=== PATIENT | female | born 1980 | race Caucasian/White ===

== ENCOUNTER 2018-01-12 19:23 | Inpatient (IN) | payer BC ==
[~2018-01-12] VITALS: Ht 160 cm; Wt 55.3 kg
[~2018-01-12 19:23] MED LIST: DIA5 PO; LACT1CAP9 PO; LEVA15HF IH; LOR5/325 PO; METH-543 PO; METH500T6 PO; [UNRECOGNIZED DRUG - CODE] PO
--- NOTE | 2018-01-12 19:35 | ER Report ---
History and Physical Time Seen By MD: 19:34 HPI/ROS CHIEF COMPLAINT: abdominal pain HISTORY OF PRESENT ILLNESS: This is a 37 year old female. She is having abdominal pain for a few days now. She has felt bloated and does have a history of chronic constipation. When she gets constipated, she will take her Trulance to help clean her out. She often take some prune juice with miralax along with this. She has been having worsening abdominal pain today. Having nausea and vomiting. She was at urgent care and they were worried about possible bowel obstruction because they told her the bowels were quiet and she had not moved them today. No fevers or chills with this. Pain seems to be mainly in the periumbilical area, but does spread out and seems worse in the right side. No dysuria, urgency or frequency with the urine. She has been chugging water to see if that would help. REVIEW OF SYSTEMS: Constitutional: No fever or chills. Eyes: No vision changes. ENT: No sore throat. No congestion. Cardiovascular: No chest pain. No palpitations. Respiratory: No cough. No shortness of breath. Gastrointestinal: As above. Genitourinary: As above. Musculoskeletal: No musculoskeletal pain. Skin: No rashes. Neurological: No headache or dizziness. Allergies: Coded Allergies: Fish Containing Products (Verified Allergy, Intermediate, VOMITING, ) erythromycin base (Verified Allergy, Intermediate, VOMITING, 01/12/18) lactose (Verified Allergy, Unknown, 01/12/18) Uncoded Allergies: DANIEL (Allergy, Unknown, 06/30/16) Home Meds Reported Medications Polyethylene Glycol 3350 (MIRALAX) 17 Gm Powd.pack, 17 GM PO QDAY, PKT 01/12/18 Plecanatide (Trulance) 3 Mg Tablet, 1 TAB PO QDAY 01/12/18 Levalbuterol Tartrate (XOPENEX HFA) 15 Gm Hfa.aer.ad, 15 GM IH BID Y for SHORTNESS OF BREATH 02/15/16 Discontinued Reported Medications Lactobacillus Combo No.10 (PROBIOTIC) 1 Each Capsule, 1 EACH PO PRN, CAPSULE 06/30/16 Methylcellulose (FIBER) 500 Mg Tablet, PO PRN 06/30/16 [place]'s Wort (LORRIE'S WORT) 150 Mg Capsule, 150 MG PO, CAPSULE 06/30/16 Discontinued Scripts Methocarbamol (ROBAXIN-750) 750 Mg Tablet, 1500 MG PO TID for Muscle Relaxant, # 15 TAB 0 Refills Prov:BERNICE CLEMONS MD 07/08/16 Diazepam (VALIUM) 5 Mg Tablet, 5 MG PO Q8H Y for BACK SPASM, #10 TAB 0 Refills Prov:BERNICE CLEMONS MD 07/08/16 Hydrocodone Bit/Acetaminophen (HYDROCODON-ACETAMINOPHEN 5-325) 1 Each Tablet, 1 EACH PO Q4-6H Y for PAIN, #12 TAB 0 Refills TAKE ONE TABLET BY MOUTH EVERY 4-6 HOURS NEEDED FOR PAIN Prov:BERNICE CLEMONS MD 06/30/16 Reviewed Nurses Notes: Yes Hx Smoking: No Smoking Status: Never Smoker Hx Substance Use Disorder: No Hx Alcohol Use: No Constitutional Vital Sign - Last 24 Hours 01/12/18 01/12/18 01/12/18 01/12/18 19:31 19:34 19:38 19:53 Temp 98.4 Pulse 65 64 64 Resp 14 B/P (MAP) 134/83 (100) 134/83 Pulse Ox 99 100 100 O2 Delivery Room Air 01/12/18 01/12/18 01/12/18 01/12/18 20:08 20:23 20:53 20:58 Pulse 67 70 67 64 Pulse Ox 97 99 100 100 Physical Exam General Appearance: The patient is alert. Having acute distress due to pain. Eyes: Pupils are equal, round. No pallor, injection or icterus. ENT: Mucous membranes are moist. Normal oral mucosa. Posterior oropharynx is normal. Neck: Supple and non tender. Respiratory: Lungs are clear to auscultation. Cardiovascular: Regular rate and rhythm. No murmurs, gallops or rubs. Gastrointestinal: Abdomen is soft, has tenderness throughout, worse in the epigastric and periumbilical area. Mild in right side, negative reinoso sign. Nondistended. Hyperactive bowel sounds. No costovertebral angle tenderness with percussion. Neurological: Alert and oriented x3. No focal neurologic deficits Skin: Warm and dry. No rashes. Musculoskeletal: Extremities are nontender. No tenderness in palpation of the cervical, thoracic and lumbar spine. DIFFERENTIAL DIAGNOSIS: After history and physical exam, differential diagnosis was considered for abdominal pain including but not limited to appendicitis, cholecystitis, gastritis, pancreatitis and urinary tract infection. Medical Decision Making Data Points Result Diagram: 01/12/18201901/12/182019 Laboratory Hematology Test 01/12/18 20:14 01/12/18 20:20 Urine Color Petra Urine Clarity Clear Urine pH 7.0 pH (4.8-9.5) Urine Specific [place] 1.017 Urine Protein Negative mg/dL (NEGATIVE) Urine Glucose (UA) Negative mg/dL (NEGATIVE) Urine Ketones 20 mg/dL (NEGATIVE) Urine Blood Negative (NEGATIVE) Urine Nitrite Negative (NEGATIVE) Urine Bilirubin Negative (NEGATIVE) Urine Urobilinogen 4.0 mg/dL (0.2-1.9) Urine Leukocyte Esterase Negative (NEGATIVE) Urine RBC <1 /HPF (0-2/HPF) Urine WBC 1 /HPF (0-5/HPF) Urine Squamous Epithelial Cells Many /LPF (</=FEW) Urine Bacteria Negative /HPF (NONE-FEW) Urine Mucus None /HPF (NONE-FEW) Red Blood Count 5.08 M/uL (4.17-5.56) Mean Corpuscular Volume 89.2 fL (80.0-96.0) Mean Corpuscular Hemoglobin 30.8 pg (26.0-33.0) Mean Corpuscular Hemoglobin Concent 34.6 g/dL (32.0-36.0) Red Cell Distribution Width 13.0 % (11.5-14.5) Mean Platelet Volume 8.0 fL (7.2-11.1) Neutrophils (%) (Auto) 75.3 % (39.4-72.5) Lymphocytes (%) (Auto) 13.1 % (17.6-49.6) Monocytes (%) (Auto) 9.3 % (4.1-12.4) Eosinophils (%) (Auto) 2.0 % (0.4-6.7) Basophils (%) (Auto) 0.3 % (0.3-1.4) Nucleated RBC Relative Count (auto) 0.1 /100WBC Neutrophils # (Auto) 6.6 K/uL (2.0-7.4) Lymphocytes # (Auto) 1.1 K/uL (1.3-3.6) Monocytes # (Auto) 0.8 K/uL (0.3-1.0) Eosinophils # (Auto) 0.2 K/uL (0.0-0.5) Basophils # (Auto) 0.0 K/uL (0.0-0.1) Nucleated RBC Absolute Count (auto) 0.01 K/uL Erythrocyte Sedimentation Rate 2 mm/HOUR (0-20) Sodium Level 140 mmol/L (137-145) Potassium Level 3.6 mmol/L (3.5-5.0) Chloride Level 104 mmol/L (98-107) Carbon Dioxide Level 24 mmol/L (22-31) Blood Urea Nitrogen 10 mg/dl (7-18) Creatinine 0.80 mg/dl (0.52-1.04) Glomerular Filtration Rate Calc > 60.0 Random Glucose 104 mg/dl (75-110) Calcium Level 9.4 mg/dl (8.4-10.2) Total Bilirubin 3.2 mg/dl (0.2-1.3) Aspartate Amino Transf (AST/SGOT) 937 U/L (0-35) Alanine Aminotransferase (ALT/SGPT) 956 U/L (0-56) Alkaline Phosphatase 127 U/L (0-126) Total Protein 7.5 gm/dl (6.3-8.2) Albumin 4.3 g/dl (3.5-5.0) Amylase Level 248 U/L (0-110) Lipase 2872 U/L (23-300) Human Chorionic Gonadotropin, Qual Negative (NEGATIVE) Chemistry Test 01/12/18 20:14 01/12/18 20:20 Urine Color Petra Urine Clarity Clear Urine pH 7.0 pH (4.8-9.5) Urine Specific [place] 1.017 Urine Protein Negative mg/dL (NEGATIVE) Urine Glucose (UA) Negative mg/dL (NEGATIVE) Urine Ketones 20 mg/dL (NEGATIVE) Urine Blood Negative (NEGATIVE) Urine Nitrite Negative (NEGATIVE) Urine Bilirubin Negative (NEGATIVE) Urine Urobilinogen 4.0 mg/dL (0.2-1.9) Urine Leukocyte Esterase Negative (NEGATIVE) Urine RBC <1 /HPF (0-2/HPF) Urine WBC 1 /HPF (0-5/HPF) Urine Squamous Epithelial Cells Many /LPF (</=FEW) Urine Bacteria Negative /HPF (NONE-FEW) Urine Mucus None /HPF (NONE-FEW) White Blood Count 8.7 k/uL (4.5-11.0) Red Blood Count 5.08 M/uL (4.17-5.56) Hemoglobin 15.7 g/dL (12.0-16.0) Hematocrit 45.3 % (34.0-47.0) Mean Corpuscular Volume 89.2 fL (80.0-96.0) Mean Corpuscular Hemoglobin 30.8 pg (26.0-33.0) Mean Corpuscular Hemoglobin Concent 34.6 g/dL (32.0-36.0) Red Cell Distribution Width 13.0 % (11.5-14.5) Platelet Count 209 K/uL (150-450) Mean Platelet Volume 8.0 fL (7.2-11.1) Neutrophils (%) (Auto) 75.3 % (39.4-72.5) Lymphocytes (%) (Auto) 13.1 % (17.6-49.6) Monocytes (%) (Auto) 9.3 % (4.1-12.4) Eosinophils (%) (Auto) 2.0 % (0.4-6.7) Basophils (%) (Auto) 0.3 % (0.3-1.4) Nucleated RBC Relative Count (auto) 0.1 /100WBC Neutrophils # (Auto) 6.6 K/uL (2.0-7.4) Lymphocytes # (Auto) 1.1 K/uL (1.3-3.6) Monocytes # (Auto) 0.8 K/uL (0.3-1.0) Eosinophils # (Auto) 0.2 K/uL (0.0-0.5) Basophils # (Auto) 0.0 K/uL (0.0-0.1) Nucleated RBC Absolute Count (auto) 0.01 K/uL Erythrocyte Sedimentation Rate 2 mm/HOUR (0-20) Glomerular Filtration Rate Calc > 60.0 Calcium Level 9.4 mg/dl (8.4-10.2) Total Bilirubin 3.2 mg/dl (0.2-1.3) Aspartate Amino Transf (AST/SGOT) 937 U/L (0-35) Alanine Aminotransferase (ALT/SGPT) 956 U/L (0-56) Alkaline Phosphatase 127 U/L (0-126) Total Protein 7.5 gm/dl (6.3-8.2) Albumin 4.3 g/dl (3.5-5.0) Amylase Level 248 U/L (0-110) Lipase 2872 U/L (23-300) Human Chorionic Gonadotropin, Qual Negative (NEGATIVE) Urinalysis Test 01/12/18 20:14 Urine Color Petra Urine Clarity Clear Urine pH 7.0 pH (4.8-9.5) Urine Specific [place] 1.017 Urine Protein Negative mg/dL (NEGATIVE) Urine Glucose (UA) Negative mg/dL (NEGATIVE) Urine Ketones 20 mg/dL (NEGATIVE) Urine Blood Negative (NEGATIVE) Urine Nitrite Negative (NEGATIVE) Urine Bilirubin Negative (NEGATIVE) Urine Urobilinogen 4.0 mg/dL (0.2-1.9) Urine Leukocyte Esterase Negative (NEGATIVE) Urine RBC <1 /HPF (0-2/HPF) Urine WBC 1 /HPF (0-5/HPF) Urine Squamous Epithelial Cells Many /LPF (</=FEW) Urine Bacteria Negative /HPF (NONE-FEW) Urine Mucus None /HPF (NONE-FEW) EKG/Imaging Imaging ACUTE ABDOMEN SERIES 3 VIEW COMPARISONS: 2 view chest dated June 30, 2016 ADDITIONAL PERTINENT HISTORY: Bloating FINDINGS: Lung sequeira: Negative. Supine evidence of free air: None. Bowel gas pattern: Negative. Surrounding soft tissues and solid organs: Small calcifications within the right lower quadrant which could represent underlying appendicoliths. IUD in place. Osseous structures: Negative. IMPRESSION: 1. No evidence of acute cardiopulmonary disease. 2. Findings which could represent appendicoliths in the right lower quadrant. 3. No acute intra-abdominal process. Report Dictated By: Rafael Roberson MD at 01/12/2018 9:01 PM EXAMINATION: CT abdomen and pelvis with IV contrast HISTORY: Pancreatitis. Elevated liver enzymes. TECHNIQUE: Axial CT images of the abdomen and pelvis were obtained with IV contrast, with coronal and sagittal 2D reconstructed images. One of the following dose optimization techniques was utilized in the performance of this exam: Automated exposure control; adjustment of the mA and/ or kV according to the patient's size; or use of an iterative reconstruction technique. Specific details can be referenced in the facility's radiology CT exam operational policy. Contrast: 75 mL of IV Isovue-370. COMPARISON: None. FINDINGS: Liver: Negative. Gallbladder and bile ducts: The gallbladder is moderately contracted, with mild wall enhancement. No calcified gallstones. No bile duct dilatation. Spleen: Negative. Pancreas: No CT evidence of acute peripancreatic stranding. The pancreas enhances normally. No focal soft tissue mass or fluid collection. Adrenal glands: Negative. Kidneys: Negative. No hydronephrosis or urinary calculi. Bowel and peritoneum: The small bowel and colon are normal in caliber, without evidence of obstruction or any focal inflammatory process. No free fluid or free intraperitoneal air. Pelvic structures: IUD present in the central uterus. No large adnexal cyst. Lymph node assessment: Negative. Vessels: Negative. Musculoskeletal: Negative. Body wall: Negative. Lung bases: Calcified granuloma in the left lower lobe. IMPRESSION: 1. Normal CT appearance of the pancreas. 2. The gallbladder is moderately contracted, with mild wall enhancement. If there is clinical concern for acute gallbladder disease, follow-up CT could be performed. 3. No other acute intra-abdominal findings. Report Dictated By: Sunny Amaral MD at 01/12/2018 9:44 PM GALLBLADDER HISTORY: Pancreatitis. Elevated liver enzymes. COMPARISON: None. CT abdomen pelvis earlier same day. FINDINGS: Pancreas: The distal body and tail of the pancreas are obscured. Visible pancreas is normal. No peripancreatic fluid collection. Upper abdominal aorta and IVC: Aorta and IVC are patent by color Doppler and are unremarkable. Liver: Normal. No intrahepatic ductal dilation. The portal vein is patent with normal hepatopetal flow. The hepatic vein is patent and phasic. Gallbladder: There is diffuse shadowing from the gallbladder due to multiple stones. No gallbladder wall thickening or pericholecystic fluid. Negative sonographic Reinoso sign. Common duct: Normal, measuring 3 mm. Right kidney: Normal in size and echogenicity. It measures 9.1 x 5.3 x 4.7 cm. No hydronephrosis. Resistive index is normal, measuring 0.5. Ascites: None. IMPRESSION: 1. Cholelithiasis, but no sonographic evidence for cholecystitis. 2. The distal body and tail of the pancreas are obscured. Report Dictated By: Kathya Andujar at 01/12/2018 10:58 PM ED Course/Re-evaluation Clinical Indication for ER IV: Hydration, IV Access ED Course After my initial evaluation, laboratory studies including a urinalysis and blood work were obtained. Patient also had a three-view abdomen. Laboratory studies did show elevation of the amylase, lipase, bili, AST, a LT, and alkaline phosphatase. The white count was normal. Electrolytes looked okay. Abdominal x-ray showed no signs of obstruction. Based on the laboratory findings , CT scan and ultrasound of the gallbladder were obtained. The gallbladder did show gallstones but no signs of cholecystitis. The patient's pain had improved significantly. I called and spoke with both the hospitalist, Dr. Cullen, and with Dr. Jensen, Gen. surgery. The patient will be admitted to general surgery for gallstone pancreatitis. Decision to Disposition Date: January 12, 2018 Decision to Disposition Time: 23:34 Depart Departure Latest Vital Signs Vital Signs Date Time Temp Pulse Resp B/P (MAP) Pulse Ox O2 Delivery O2 Flow Rate FiO2 01/12/18 20:58 64 100 01/12/18 19:34 98.4 14 134/83 Room Air Impression: Primary Impression: Acute gallstone pancreatitis Condition: Condition Unchanged Disposition: Admitted from ER ZARIA COY MD January 12, 2018 19:34
[2018-01-12] MEDS ORDERED: PLEC3TAB PO (19:39)
[2018-01-12] MEDS ORDERED: POLY17PO25 PO (19:39)
[2018-01-12 20:27] LABS: PLATELET COUNT, AUTOMATED 209 K/uL (150-450)
--- NOTE | 2018-01-12 21:08 | RADIOLOGY IMAGING REPORT ---
FACILITY: [facility] PATIENT NAME: Jada Daley : 1980 MR: [id number] V: [id number] EXAM DATE: ORDERING PHYSICIAN: ZARIA COY TECHNOLOGIST: Location: [facility] - [place] Patient: Jada Daley : 1980 Visit/Account:[id number] Date of Sevice: 01/12/2018 ACUTE ABDOMEN SERIES 3 VIEW COMPARISONS: 2 view chest dated June 30, 2016 ADDITIONAL PERTINENT HISTORY: Bloating FINDINGS: Lung sequeira: Negative. Supine evidence of free air: None. Bowel gas pattern: Negative. Surrounding soft tissues and solid organs: Small calcifications within the right lower quadrant which could represent underlying appendicoliths. IUD in place. Osseous structures: Negative. IMPRESSION: 1. No evidence of acute cardiopulmonary disease. 2. Findings which could represent appendicoliths in the right lower quadrant. 3. No acute intra-abdominal process. Report Dictated By: Rafael Roberson MD at 01/12/2018 9:01 PM Report E-Signed By: Rafael Roberson MD at 01/12/2018 9:04 PM WSN:[id number]
[2018-01-12] MEDS ORDERED: IOPAMIDOL 76% 75 ML INFUS BTL 75 ML ONE (21:09)
--- NOTE | 2018-01-12 21:57 | RADIOLOGY IMAGING REPORT ---
FACILITY: [facility] - [place] PATIENT NAME: Jada Daley : 1980 MR: [id number] V: [id number] EXAM DATE: ORDERING PHYSICIAN: ZARIA COY TECHNOLOGIST: Location: [facility] - [place] Patient: Jada Daley : 1980 Visit/Account:[id number] Date of Sevice: 01/12/2018 EXAMINATION: CT abdomen and pelvis with IV contrast HISTORY: Pancreatitis. Elevated liver enzymes. TECHNIQUE: Axial CT images of the abdomen and pelvis were obtained with IV contrast, with coronal a nd sagittal 2D reconstructed images. One of the following dose optimization techniques was utilized in the performance of this exam: Autom ated exposure control; adjustment of the mA and/or kV according to the patient's size; or use of an i terative reconstruction technique. Specific details can be referenced in the facility's radiology C T exam operational policy. Contrast: 75 mL of IV Isovue-370. COMPARISON: None. FINDINGS: Liver: Negative. Gallbladder and bile ducts: The gallbladder is moderately contracted, with mild wall enhancement. No calcified gallstones. No bile duct dilatation. Spleen: Negative. Pancreas: No CT evidence of acute peripancreatic stranding. The pancreas enhances normally. No focal soft tissue mass or fluid collection. Adrenal glands: Negative. Kidneys: Negative. No hydronephrosis or urinary calculi. Bowel and peritoneum: The small bowel and colon are normal in caliber, without evidence of obstructi on or any focal inflammatory process. No free fluid or free intraperitoneal air. Pelvic structures: IUD present in the central uterus. No large adnexal cyst. Lymph node assessment: Negative. Vessels: Negative. Musculoskeletal: Negative. Body wall: Negative. Lung bases: Calcified granuloma in the left lower lobe. IMPRESSION: 1. Normal CT appearance of the pancreas. 2. The gallbladder is moderately contracted, with mild wall enhancement. If there is clinical concern for acute gallbladder disease, follow-up CT could be performed. 3. No other acute intra-abdominal findings. Report Dictated By: Sunny Amaral MD at 01/12/2018 9:44 PM Report E-Signed By: Sunny Amaral MD at 01/12/2018 9:53 PM WSN:[id number]
--- NOTE | 2018-01-12 23:09 | RADIOLOGY IMAGING REPORT ---
FACILITY: [facility] - [place], [place] PATIENT NAME: Jada Daley : 1980 MR: [id number] V: [id number] EXAM DATE: ORDERING PHYSICIAN: ZARIA COY TECHNOLOGIST: Location: [facility] Patient: Jada Daley : 1980 Visit/Account:[id number] Date of Sevice: 01/12/2018 GALLBLADDER HISTORY: Pancreatitis. Elevated liver enzymes. COMPARISON: None. CT abdomen pelvis earlier same day. FINDINGS: Pancreas: The distal body and tail of the pancreas are obscured. Visible pancreas is normal. No perip ancreatic fluid collection. Upper abdominal aorta and IVC: Aorta and IVC are patent by color Doppler and are unremarkable. Liver: Normal. No intrahepatic ductal dilation. The portal vein is patent with normal hepatopetal magalie w. The hepatic vein is patent and phasic. Gallbladder: There is diffuse shadowing from the gallbladder due to multiple stones. No gallbladder w all thickening or pericholecystic fluid. Negative sonographic Reinoso sign. Common duct: Normal, measuring 3 mm. Right kidney: Normal in size and echogenicity. It measures 9.1 x 5.3 x 4.7 cm. No hydronephrosis. Res istive index is normal, measuring 0.5. Ascites: None. IMPRESSION: 1. Cholelithiasis, but no sonographic evidence for cholecystitis. 2. The distal body and tail of the pancreas are obscured. Report Dictated By: Kathya Andujar at 01/12/2018 10:58 PM Report E-Signed By: Kathya Andujar at 01/12/2018 11:06 PM WSN:[id number]
[2018-01-12 23:59] VITALS: BP 129/87
[2018-01-13] MEDS ORDERED: MORPHINE 1 MG/ML 30 ML PCA IV PRN ×2 (00:10→06:50)
[2018-01-13] MEDS ORDERED: ACETAMINOPHEN(*)1000 MG/100 ML 100 ML IVPB PRN ×2 (00:25)
[2018-01-13] MEDS ORDERED: ONDANSETRON 4 MG/2 ML VIAL IVP PRN ×3 (00:25→06:50)
[2018-01-13] MEDS ORDERED: KCL 2 MEQ/ML 20 MEQ/10 ML VIAL 20 MEQ in D5 1/2 NS(*) 1000 ML BAG 1,000 ML IV SCH (00:35)
[2018-01-13] MEDS ORDERED: NS(*) 0.9% 1000 ML BAG 1,000 ML ONE (00:48)
[2018-01-13] MEDS: NS(*) 0.9% 1000 ML BAG 1,000 ML IV SCH ×2 (00:54→05:45)
[2018-01-13 05:48] VITALS: BP 121/79
--- NOTE | 2018-01-13 06:50 | General Surgery 1 H&P ---
History of Present Illness Chief Complaint abdominal pain History of Present Illness 37 yo female with asthma presents with abdominal pain. pt developed some mid abdominal pain 3 days ago it then went away then yesterday the patient developed a tight pain across the mid upper abdomen. no nausea or vomiting. no fever. no change in bms no urinary complaints.. she does have some back pain. pt seen in ed. lab shows elevated lipase and bilirubin and lfts. ultrasound shows cholelithiasis. ct shows pancreas to look normal. pt feeling better this am. pain improved. lab work improving except for bilirubin. History Other Past Surgeries: urethra as child Home Meds Reported Medications Polyethylene Glycol 3350 (MIRALAX) 17 Gm Powd.pack, 17 GM PO QDAY, PKT 01/12/18 Plecanatide (Trulance) 3 Mg Tablet, 1 TAB PO QDAY 01/12/18 Levalbuterol Tartrate (XOPENEX HFA) 15 Gm Hfa.aer.ad, 15 GM IH BID Y for SHORTNESS OF BREATH 02/15/16 Discontinued Reported Medications Lactobacillus Combo No.10 (PROBIOTIC) 1 Each Capsule, 1 EACH PO PRN, CAPSULE 06/30/16 Methylcellulose (FIBER) 500 Mg Tablet, PO PRN 06/30/16 Андрей's Wort (АНДРЕЙ'S WORT) 150 Mg Capsule, 150 MG PO, CAPSULE 06/30/16 Discontinued Scripts Methocarbamol (ROBAXIN-750) 750 Mg Tablet, 1500 MG PO TID for Muscle Relaxant, # 15 TAB 0 Refills Prov:BERNICE CLEMONS MD 07/08/16 Diazepam (VALIUM) 5 Mg Tablet, 5 MG PO Q8H Y for BACK SPASM, #10 TAB 0 Refills Prov:BERNICE CLEMONS MD 07/08/16 Hydrocodone Bit/Acetaminophen (HYDROCODON-ACETAMINOPHEN 5-325) 1 Each Tablet, 1 EACH PO Q4-6H Y for PAIN, #12 TAB 0 Refills TAKE ONE TABLET BY MOUTH EVERY 4-6 HOURS NEEDED FOR PAIN Prov:BERNICE CLEMONS MD 06/30/16 Allergies: Coded Allergies: Fish Containing Products (Verified Allergy, Intermediate, VOMITING, ) erythromycin base (Verified Allergy, Intermediate, VOMITING, 01/12/18) lactose (Verified Allergy, Unknown, 01/12/18) Uncoded Allergies: DANIEL (Allergy, Unknown, 06/30/16) Family History: Diabetes mellitus FATHER FH: bipolar disorder MOTHER FH: breast cancer MOTHER FH: hypertension FATHER BROTHER OR SISTER FH: migraine headache MOTHER Review of Systems History of Hypertension?: No History of Diabetes?: No History of DVT?: No Obstructive Sleep Apnea?: No History of Liver Disease?: No History of Kidney Disease?: No Respiratory: Reports Other (asthma) Gastrointestinal: Nausea, Vomiting, Diarrhea, Dysphagia, Constipation (chronic constipation), Early Satiety, Hematemesis, Hematochezia, Melena, Abdominal Pain , Other Exam Vital Signs Date Time Temp Pulse Resp B/P (MAP) Pulse Ox O2 Delivery O2 Flow Rate FiO2 01/13/18 05:48 97.9 70 16 121/79 (93) 98 Blow-by General Appearance: Alert, Awake, No Acute Distress GI: Abd Soft and Non-Tender Medical Decision Making Data Points Result Diagram: 01/13/1829 01/13/1829 Assessment and Plan Problems: (1) Acute gallstone pancreatitis Status: Acute Assessment & Plan: will admit give iv hydration and analgesia. let pancreatitis settle down then remove gallbladder. if bilirubin continues to go up will get mrcp and possible gastroenterology evaluation, Copies to: STANISLAW PATTEN MD Venous Thromboembolism Antithrombotics Is Pt On Any Antithrombotics?: No STANISLAW PATTEN MD January 13, 2018 06:49
[2018-01-13 07:22] VITALS: BP 116/85
[2018-01-13 08:27] VITALS: Ht 160 cm; Wt 55.3 kg
[2018-01-13] MEDS ORDERED: KCL/D1/2NS 20 MEQ 1000 ML 1,000 ML IV SCH (08:45)
[2018-01-13] MEDS ORDERED: PANTOPRAZOLE SOD 40 MG IV VIAL IVP SCH ×2 (09:00)
[2018-01-13] MEDS: PANTOPRAZOLE SOD 40 MG IV VIAL IVP SCH (09:06)
[2018-01-13] MEDS: NORMOSOL R SOLN(*) 1000 ML BAG 1,000 ML IV PRN ×2 (09:06→17:36)
[2018-01-13 11:50] VITALS: BP 126/77
[2018-01-13 14:26] VITALS: BP 122/78
[2018-01-13 18:42] VITALS: BP 124/86
[2018-01-14] VITALS (12 sets, daily range): BP systolic 97–126; BP diastolic 55–92
[2018-01-14] MEDS: NORMOSOL R SOLN(*) 1000 ML BAG 1,000 ML IV PRN ×2 (01:17→10:04)
[2018-01-14 06:06] LABS: PLATELET COUNT, AUTOMATED 165 K/uL (150-450)
--- NOTE | 2018-01-14 07:13 | General Surgery Progress Note ---
Subjective Progress Notes Subjective no complaints. no pain Physical Exam Vital Signs Date Time Temp Pulse Resp B/P (MAP) Pulse Ox O2 Delivery O2 Flow Rate FiO2 01/14/18 06:09 97 01/14/18 06:07 98.2 81 16 121/80 (94) Room Air General Appearance: Alert, Awake, No Acute Distress GI: Soft and Non-Tender Result Diagram: 01/14/18 0559 01/14/18 0559 Assessment and Plan Problems: (1) Acute gallstone pancreatitis Status: Acute Assessment & Plan: will admit give iv hydration and analgesia. let pancreatitis settle down then remove gallbladder. if bilirubin continues to go up will get mrcp and possible gastroenterology evaluation, 01/14/18 lab and symptoms improved, lap pamela today Exam Sepsis Risk: No Definite Risk STANISLAW PATTEN MD Jan 14, 2018 07:13
--- NOTE | 2018-01-14 07:25 | Post Operative Progress Note ---
Post Operative Progress Note Date: Jan 14, 2018 Time: 11:51 Surgeon: rahul Anesthesia: dr gilbert Pre-Op Diagnosis: gallstone pancreatitis Post-Op Diagnosis: cholelithiasis, cholecystitis and choledocholithiasis Procedure(s): lap pamela with gram and common bile duct exploration STANISLAW PATTEN MD Jan 14, 2018 07:24
[2018-01-14] MEDS: PANTOPRAZOLE SOD 40 MG IV VIAL IVP SCH (08:51)
[2018-01-14] MEDS ORDERED: fentaNYL CITR 250 MCG/5 ML AMP ONE (09:05)
[2018-01-14] MEDS ORDERED: DEXAMETHASONE SOD PHOS 10MG/ML ONE (09:06)
[2018-01-14] MEDS ORDERED: LIDOCAINE MPF 1% 5 ML VIAL ONE ×2 (09:06→11:03)
[2018-01-14] MEDS ORDERED: ONDANSETRON 4 MG/2 ML VIAL ONE (09:06)
[2018-01-14] MEDS ORDERED: NS 0.9% 20 ML SDV 20 ML ONE (09:06)
[2018-01-14] MEDS ORDERED: PROPOFOL EMUL(*) 10MG/ML 20 ML 20 ML ONE (09:06)
[2018-01-14] MEDS ORDERED: KETAMINE HCL 200 MG/20 ML MDV ONE (09:11)
[2018-01-14] MEDS ORDERED: IOPAMIDOL 61% 75 ML INFUS BTL 75 ML ONE (09:45)
[2018-01-14] MEDS ORDERED: ROPIVACAINE 0.2% 20 ML VIAL ONE (09:45)
[2018-01-14] MEDS ORDERED: MIDAZOLAM 2 MG/2 ML VIAL IVP PRN (10:00)
[2018-01-14] MEDS ORDERED: SCOPOLAMINE 1.5 MG PATCH TD ONE (10:05)
[2018-01-14] MEDS ORDERED: KETOROLAC 30 MG/ML VIAL ONE (10:07)
[2018-01-14] MEDS ORDERED: SUGAMMADEX SOD 200 MG/2 ML SDV ONE (10:08)
[2018-01-14] MEDS ORDERED: HALOPERIDOL LACT 5 MG/ML VIAL IM ONE (10:11)
[2018-01-14] MEDS ORDERED: ROCURONIUM BROM 10 MG/ML 5 ML ONE (10:30)
[2018-01-14] MEDS ORDERED: LIDO/EPI 1% MDV 1:100,000 20ML INFIL ONE (11:01)
[2018-01-14] MEDS ORDERED: GLUCAGON 1 MG KIT ONE ×2 (11:04→11:07)
[2018-01-14] MEDS ORDERED: LIDOCAINE 1%MDV(*)200 MG/20 ML 1 ML ONE (11:04)
[2018-01-14] MEDS ORDERED: cefOXitin/DEX(*) 2GM/50ML PREM 50 ML IVPB ONE (11:15)
[2018-01-14] MEDS ORDERED: KETOROLAC 30 MG/ML VIAL IVP SCH (12:00)
[2018-01-14] MEDS ORDERED: HYDROmorphone HCL 2 MG/ML SDV ONE (12:09)
--- NOTE | 2018-01-14 14:01 | OPERATIVE REPORT 1 ---
EVENT DATE: January 14, 2018 SURGEON: Alfonzo Jensen MD ANESTHESIOLOGIST: Kenan Welch MD ANESTHESIA: General. PREOPERATIVE DIAGNOSES Cholelithiasis, cholecystitis. POSTOPERATIVE DIAGNOSES Cholelithiasis, cholecystitis, choledocholithiasis. PROCEDURE Laparoscopic cholecystectomy with intraoperative cholangiogram and common bile duct exploration. DESCRIPTION OF PROCEDURE Patient was placed in the supine position and given general anesthetic. Her abdomen was prepped and draped in sterile fashion. We anesthetized the skin with 0.2% ropivacaine, made a small incision above the umbilicus, inserted a Veress needle, insufflated the abdomen with CO2. We then placed a 5 mm port under direct vision. We then placed two 5 mm in the right subcostal region, a 10 mm in the epigastrium under direct vision. Gallbladder was grasped, raised cephalad. There were adhesions to the undersurface of the gallbladder. These were taken down with electrocautery and blunt dissection. We dissected out the cystic duct, gallbladder junction. Cystic duct was dilated. We opened the cystic duct, inserted Taut catheter, obtained cholangiograms, which showed stones in the distal common duct. We then removed the Taut catheter past the 4 [place] ureteral stone basket several times and retrieved stones. We were able to get the catheter to thread through into the duodenum without difficulty. We then repeated the cholangiogram. There still seemed to be a little abnormality there. We then injected 10 mL of Xylocaine plain into the common bile duct. Anesthesiologist gave 2 mg of glucagon IV. We then repeated flushing and passing the stone basket. No other abnormalities were returned. We repeated the cholangiogram. This showed flow into the duodenum, nice tapering of the distal duct. There appeared to be a small amount of debris in the distal common bile duct. The Taut catheter was removed. We passed the basket several times but could not retrieve anything else. We flushed it several times with saline, could not get anything else out. At this point, the cystic duct was doubly clipped proximally and transected. It was also ligated with an #0- Chromic Endoloop. We then clipped the cystic artery doubly and transected it. Additional branch was noted and clipped. We then used electrocautery to dissect the gallbladder from the bed of the liver. This dissection went very nicely. We had excellent hemostasis. Gallbladder was placed in Endopouch, removed from the field. We suction irrigated, inspected for bleeding. We had perfect hemostasis. Ports were removed under direct vision. No bleeding was noted. Skin was closed with interrupted 4-0 Maxon. Steri-Strips and Airstrip were placed. MTDD
--- NOTE | 2018-01-14 14:51 | Medical Nutrition Therapy ---
Nutrition Anthropometrics Height (Inches): 63.00 Height (Calculated Centimeters: 160.782020 Weight (Pounds): 122 Weight (Calculated Kilograms): 55.338 [place] Nutrition Score: Probably Inadequate [place] Nutrition Risk Score: 17 Dietary Referral Nutrition Risk Factors: Nutrition Risk Comment: Physical Findings Physical Appearance: BMI 21.6 Skin Appearance Skin Appearance: Edema Edema Location Modifier: Edema Location: Type of Edema: Degree of Edema: Gastrointestinal Symptoms GI Symtoms: Bloating Tube Present: Bowel Sounds: Recent Bowel Pattern: Stool Characteristics: Nutritional Diagnosis Nutritional Risk Acuity 2: Pancreatitis Past Medical History: Migraine aura, Acute gallstone pancreatitis Nutritional Acuity: 2-Moderate Nutrition Diagnosis: Increased Nutrient Needs Nutrition Etiology: Physiological Causes Nutrition Problem/Etiology/Sym: Increase nutrient needs related to phyisoloical causes AEB pancreatitis and 3 days on NPO diet. Energy Requirement: 1585 ([place] with AF 1.3) Protein Requirement: 58 (1.1g/kg high protein related to pancreatitis) Fluid Requirement: 1650 (30ml/kg) Diet Type: Diet as Tolerated AFUA/REG Nutrition Intervention: Cont diet as ordered, Encourage intake Nutrition Monitoring & Eval Nutrition Goals: Eat 75-100% Meal RD Patient Assessment Time: [address] Assessment Type: RD Assessment Patient Nutrition Acuity: 2-Moderate Follow Up Date: Jan 17, 2018 Nutritional Comment: 01/13 Pt admitted for gallstone pancreatitis. Yesterday pt was experincing abdominal pain, constipation, bloated and N/V. Today pt denies N/V, but still has abdominal pain.Notable lab vaules indicate elevated liver enzymes, lipase (718), total bilirubin (4.1) and low alb (3.3). Pt is on NPO diet and is scheduled to have her gallbladder removed once pancreatitis settles down. Continue to monitor pt progress and diet advancement. MT 01/14 No complaints today. Pt continues on day 3 on NPO diet, however it is scheduled to have her gallbladder removed today. Pt continues to have elevated liver enzymes , total bilirubin (3.8), alb (3.0) and low random blood glucose (65). Once surgery is completed I would recommend nutrition education on pancreatitis, suggesting high protein and low fat diet. Continue to monitor pt progress and encourage intake. MT RAYMON SKINNER Jan 14, 2018 09:59
[2018-01-14] MEDS: KETOROLAC 30 MG/ML VIAL IVP SCH ×2 (16:06→22:17)
[2018-01-14] MEDS: APAP/HYDROCODONE 325/5 TAB PO PRN ×3 (17:16→22:17)
[2018-01-15] MEDS: KETOROLAC 30 MG/ML VIAL IVP SCH ×2 (03:41→10:00)
[2018-01-15 03:47] VITALS: BP 106/92
[2018-01-15 05:37] LABS: PLATELET COUNT, AUTOMATED 171 K/uL (150-450)
[2018-01-15 06:51] VITALS: BP 121/81
[2018-01-15] MEDS: APAP/HYDROCODONE 325/5 TAB PO PRN (08:14)
[2018-01-15] MEDS ORDERED: PANTOPRAZOLE SOD 40 MG TABEC PO SCH (09:15)
--- NOTE | 2018-01-15 09:19 | General Surgery Progress Note ---
Subjective Progress Notes Subjective complains of incisional pain, tolerating po diet. Physical Exam Vital Signs Date Time Temp Pulse Resp B/P (MAP) Pulse Ox O2 Delivery O2 Flow Rate FiO2 01/15/18 06:51 98.2 70 16 121/81 (94) 96 Room Air 01/14/18 20:16 2.0 General Appearance: Alert, Awake GI: Soft and Non-Tender Result Diagram: 01/15/18 0526 01/15/18525 Assessment and Plan Problems: (1) Acute gallstone pancreatitis Status: Acute Assessment & Plan: will admit give iv hydration and analgesia. let pancreatitis settle down then remove gallbladder. if bilirubin continues to go up will get mrcp and possible gastroenterology evaluation, 01/14/18 lab and symptoms improved, lap pamela today 01/15/18 doing well home today. lipase normal, bilirubin down to 1.7 Exam Sepsis Risk: No Definite Risk NACHTIGAL,STANISLAW LIANG Jan 15, 2018 09:19
[2018-01-15] MEDS ORDERED: KET10 PO (09:21)
[2018-01-15] MEDS ORDERED: HYDR-4309 PO (09:21)
--- NOTE | 2018-01-15 09:23 | Short(Outpt) Discharge Summary ---
Discharge Summary Reason for Hosp/Final Diag: (1) Acute gallstone pancreatitis Status: Acute Hospital Course & Plan: will admit give iv hydration and analgesia. let pancreatitis settle down then remove gallbladder. if bilirubin continues to go up will get mrcp and possible gastroenterology evaluation, 01/14/18 lab and symptoms improved, lap pamela today 01/15/18 doing well home today. lipase normal, bilirubin down to 1.7 Departure Discharge to: Home Discharge Instructions Home Meds Active Scripts Hydrocodone Bit/Acetaminophen (NORCO 5-325 TABLET) 1 Each Tablet, 1-2 EACH PO Q4H Y for PAIN, #30 TAB Prov:STANISLAW PATTEN MD 01/15/18 Ketorolac Tromethamine (KETOROLAC TROMETHAMINE) 10 Mg Tab, 10 MG PO Q6H, #16 TAB Prov:STANISLAW PATTEN MD 01/15/18 Reported Medications Polyethylene Glycol 3350 (MIRALAX) 17 Gm Powd.pack, 17 GM PO QDAY, PKT 01/12/18 Plecanatide (Trulance) 3 Mg Tablet, 1 TAB PO QDAY 01/12/18 Levalbuterol Tartrate (XOPENEX HFA) 15 Gm Hfa.aer.ad, 15 GM IH BID Y for SHORTNESS OF BREATH 02/15/16 Discontinued Reported Medications Lactobacillus Combo No.10 (PROBIOTIC) 1 Each Capsule, 1 EACH PO PRN, CAPSULE 06/30/16 Methylcellulose (FIBER) 500 Mg Tablet, PO PRN 06/30/16 [place]'s Wort (LORRIE'S WORT) 150 Mg Capsule, 150 MG PO, CAPSULE 06/30/16 Discontinued Scripts Methocarbamol (ROBAXIN-750) 750 Mg Tablet, 1500 MG PO TID for Muscle Relaxant, # 15 TAB 0 Refills Prov:BERNICE CLEMONS MD 07/08/16 Diazepam (VALIUM) 5 Mg Tablet, 5 MG PO Q8H Y for BACK SPASM, #10 TAB 0 Refills Prov:BERNICE CLEMONS MD 07/08/16 Hydrocodone Bit/Acetaminophen (HYDROCODON-ACETAMINOPHEN 5-325) 1 Each Tablet, 1 EACH PO Q4-6H Y for PAIN, #12 TAB 0 Refills TAKE ONE TABLET BY MOUTH EVERY 4-6 HOURS NEEDED FOR PAIN Prov:BERNICE CLEMONS MD 06/30/16 Diet: Regular Activity: As Tolerated Special Instructions: remove bandage and shower tomorrow to see me in one week, call [phone] for STANISLAW Shah MD Jan 15, 2018 09:22
== END 2018-01-15 10:55 | disposition home or self-care (01) | DRG 418 ==
LOC: ER 19:54 → MED 23:32
PROVIDERS: ADMIT Surgery; ATTEND Surgery
PROC: 0FC94ZZ Extirpation of Matter from Common Bile Duct, Percutaneous Endoscopic Approach (ICD-10-PCS; 2018-01-14)
PROC: 0FT44ZZ Resection of Gallbladder, Percutaneous Endoscopic Approach (ICD-10-PCS; principal; 2018-01-14 10:16)
DX: K85.10 Biliary acute pancreatitis without necrosis or infection (principal); K80.61 Calculus of gallbladder and bile duct with cholecystitis, unspecified, with obstruction; K59.09 Other constipation; R14.0 Abdominal distension (gaseous); Z91.011 Allergy to milk products; Z91.018 Allergy to other foods; Z88.1 Allergy status to other antibiotic agents; Z91.013 Allergy to seafood; J45.909 Unspecified asthma, uncomplicated
CPT/HCPCS: 36415; 74022; 74177; 74300; 76705; 81001; 82040; 82150; 82247; 82310; 82374; 82435; 82565; 82947; 83690; 84075; 84132; 84155; 84295; 84450; 84460; 84520; 84703; 85025; 85027; 85651; 88304; 99285; C9113; J0131; J0694; J1100; J1170; J1610; J1630; J1885; J2001; J2250; J2270; J2405; J2704; J2795; J3010; J3490; J7030; J7050; Q9967

== ENCOUNTER → 2018-01-24 | Outpatient (CLI) | payer BC ==
[2018-01-13 08:27] VITALS: BMI 21.6
[~2018-01-24] MED LIST changes: +HYDR-4309 PO; +KET10 PO; +PLEC3TAB PO; +POLY17PO25 PO
== END ==
LOC: LAB 11:34
PROVIDERS: ATTEND Surgery
DX: Z87.19 Personal history of other diseases of the digestive system (principal)
CPT/HCPCS: 36415; 82040; 82247; 82310; 82374; 82435; 82565; 82947; 83690; 84075; 84132; 84155; 84295; 84450; 84460; 84520